=== PATIENT | female | born 1980 | race Caucasian/White ===

== ENCOUNTER 2023-02-17 06:18 | Emergency (ER) | payer BC, SELFPAY ==
--- NOTE | ~2023-02-17 | CT_ITS ---
CT head/brain wo IV con CLINICAL INFORMATION: Reason for Exam seizure like activity, no history of sz COMPARISON: No prior CT scan available for comparison. TECHNIQUE: Department standard protocol. This CT examination was performed using dose optimization techniques as appropriate, variously including the following: *Automated exposure control *Adjustment of mA and/or kV according to patient size (this includes techniques or standardized protocols for targeted exams where dose is matched to indication/reason for exam; i.e. extremities or head) *Use of iterative reconstruction technique DLP: 606 mGy-cm FINDINGS: CEREBRAL HEMISPHERES: There is no evidence of intra-axial or extra-axial mass, hemorrhage or acute infarct. BRAIN PARENCHYMA: Normal [place]-white matter differentiation. SUBDURAL SPACE: No bleed. BASAL GANGLIA AND PINEAL GLAND: Unremarkable VENTRICLES: Symmetric and normal in size. CEREBELLUM AND BRAINSTEM: No space-occupying mass, hemorrhage or acute infarct. CEREBELLOPONTINE ANGLES: No lesion found. ORBITS: No intraorbital mass. VESSELS: Unremarkable SKULL BASE: Unremarkable INCLUDED SINUSES AT SKULL BASE: Clear SKULL AND SKIN: No fracture or bone lesion found. CT/CT head/brain wo IV con IMPRESSION: No CT evidence of intracranial space-occupying mass, bleed or infarct.
[2023-02-17 06:23] VITALS: BP 145/78; BP 146/96; PULSE 108; PULSE 110; RESP 21; TEMP 37.1; O2SAT 97; BMI 24.9
--- NOTE | 2023-02-17 06:23 | ECG_ITS ---
Test Reason : SEIZURES Blood Pressure : / mmHG Vent. Rate : 112 BPM Atrial Rate : 112 BPM P-R Int : 128 ms QRS Dur : 104 ms QT Int : 346 ms P-R-T Axes : 051 041 031 degrees QTc Int : 472 ms Sinus tachycardia Incomplete right bundle branch block Nonspecific ST abnormality Abnormal ECG No previous ECGs available Referred By: Generic ED Physician Electronically Signed By:RADU GRIGGS
--- NOTE | 2023-02-17 06:31 | ED_ITS ---
HPI - General Adult General Chief complaint: Seizure Stated complaint: SZ, POST ICTAL, NO SZ HX PER EMS Time Seen by Provider: 02/17/23 06:31 Source: patient and family () Mode of arrival: EMS Limitations: no limitations History of Present Illness HPI narrative: Patient is a 42-year-old female with history of dystonia presenting to the emergency department with report of seizure-like activity by . Has been reports that he was woken by patient making all out gasping noises around 5:00 a.m., then she appeared to be having tonic clonic movements and some foaming at the mouth. He feels the episode lasted approximately 1 minute, followed by heavy breathing for several minutes. States he rolled her onto her side and observed her eyes rolling back into her head, then called 911. Patient reports that she remembers waking several times throughout the night with sensation of nausea. She denies any vomiting. States that she felt fine yesterday, denies any recent headaches, cough, abdominal pain, chest pain, shortness of breath. Reports that she has been having episodes of palpitations every several weeks since October or November. Saw her PCP regarding the palpitations and wore a Holter monitor for 2 weeks. She is scheduled to see [facility] next month for further evaluation. She denies any current chest pain, shortness of breath, palpitations. Patient and deny any history of seizures. Patient denies bowel or bladder incontinence. She denies any recent falls or other trauma. MD complaint: Seizure-like activity Onset (ago): hour(s) Associated symptoms: denies other symptoms Treatments prior to arrival: none Related Data Previous Rx's Medication Instructions Recorded nitrofurantoin 100 mg PO Q12H 5 days #10 caps 02/17/23 monohydrate/macrocrystals 100 mg capsule (Macrobid) Allergies Allergy/AdvReac Type Severity Reaction Status Date / Time cefazolin Allergy Rash Verified 02/17/23 07:49 tomato [TOMATO] AdvReac Intermediate ABD PAIN, Verified 02/17/23 07:50 BLOATING Review of Systems 2 Review of Systems: As per HPI. Yes all other systems are reviewed and are negative Constitutional: Constitutional: Reports as per HPI [facility] Social History Social History Smoked in Last 30 Days: No Use of substances other than those prescribed or required for medical reasons: No Advance Directives: No Advance Directives Information Provided: No Patient : No Physical Exam ED Vital Signs: Vital Signs - 24 hr 02/17/23 06:23 02/17/23 07:08 Temperature 98.7 F Pulse Rate 108 H 92 Respiratory Rate 21 H 18 Blood Pressure 146/96 H 125/75 Pulse Oximetry 99 Oxygen Delivery Method Room Air Room Air BMI result Body Mass Index 24.9 Vital signs have been reviewed and appear to be correct. Blood pressure elevated. Heart rate tachycardic. Respiratory rate normal. Temperature normal. Oxygen saturation normal. Const General: cooperative, healthy appearing and no acute distress Orientation/consciousness: oriented to person, oriented to place, oriented to time and patient oriented x3 Limitations: no limitations HENMT Head: Yes normocephalic and Yes atraumatic Ears: external ears normal General nose exam: Normal external nose present Face and sinus: Yes face symmetric Mouth: oropharynx normal and moist mucous membranes Throat: Yes uvula midline Eyes Pupils: Equal, round and reactive pupils present Neck Neck: Yes normal visual inspection and Yes supple Resp Effort & Inspection: normal respiratory effort and able to speak in complete sentences Auscultation: clear to auscultation bilaterally Cardio Rate: regular rate Rhythm: regular rhythm Heart sounds: S1 normal heart sound present and S2 normal heart sound present GI Palpation (GI): Soft to palpation and nontender Auscultation: normoactive bowel sounds General: Yes no CVA tenderness Back/Spine/Pelvis Back: no CVA tenderness Skin General skin exam: elasticity normal and turgor normal Neuro General: oriented to person, oriented to place, oriented to time, patient oriented x3, moves all extremities, no focal motor deficits and CN's II-XI intact bilaterally Cranial nerves: Yes Equal, round and reactive pupils present Cognition (Neuro): normal cognition Extrem General: Yes full ROM, Yes no pedal edema and Yes no calf tenderness Psych Mental Status: mental status grossly normal Affect: normal affect Thought process: Normal thought process present Medications Administered Discontinued Medications Generic Name Dose Route Start Last Admin Trade Name Freq PRN Reason Stop Dose Admin Sodium Chloride 1,000 mls @ 999 mls/hr 02/17/23 07:15 02/17/23 08:17 Ns IV 02/17/23 08:15 Infused .Q1H1M SAMY Infusion Medical Decision Making Medical Decision Making [facility] Narrative: 07:05 Patient is a 42-year-old female with history of dystonia presenting to the emergency department with report of seizure-like activity by . On exam patient is awake, A+Ox3, mildly tachycardic, BP slightly elevated, VS otherwise WNL, afebrile, normal neurological exam without focal deficits, physical exam findings as above. Given reported symptoms and physical exam findings, initial differential includes CVA/ICH, tumor/mass, infection, electolyte abnormality, ETOH withdrawl, infection. Do not suspect sepsis at this time. 07:15 Lactic elevated to 5.5 likely secondary to seizure, will order IV fluids. Although patient meets sepsis criteria, based on reported history and physical exam findings, elevated lactic and tachycardia likely related to seizure. Patient does not show evidence of leukocytosis, is afebrile. Do not suspect sepsis. Labs notable for no leukocytosis, no anemia, negative troponin. CO2 17 likely related to hyperventilation during seizure. UA with 2+ leukocytes, 3+ blood, 21-50 WBCs, trace bacteria, will treat for UTI. CT notable for no acute abnormality. My interpretation is in agreement with the radiologist's interpretation. All results discussed with patient and all questions answered. Patient states that she already has a neurologist that she sees every 6 months for her dystonia. Instructed patient to contact her neurologist's office 1st thing tomorrow morning to schedule an appointment regarding the seizure. Discussed with patient has been that patient should not drive until cleared by Neurology. Instructed patient and has been to return for any additional episodes of seizures or seizure-like activity. Will treat for UTI with Macrobid based on UA results. All other return precautions discussed at bedside. Patient has been verbalized understanding of and agreement with plan. Discussed case with Dr. Tsang who agrees patient is stable for discharge home with outpatient neurology follow up. Differential Diagnosis Differential Diagnoses: The differential diagnosis associated with the presentation includes As per [facility]. Admission/Observation Consideration of admission/observation: Escalation of care including admission/observation considered Lab Data [facility] Lab Attestation statement: I reviewed the patient's lab results. As per [facility]. 02/17/23 06:39 02/17/23 06:39 Labs: Lab Results 02/17/23 02/17/23 Range/Units 06:39 07:25 WBC 6.1 (4.8-10.8) X10*3/uL RBC 4.81 (4.20-5.50) X10*6/uL Hgb 13.7 (12.0-16.0) g/dl Hct 39.3 (37.0-47.0) % MCV 81.7 (80.0-98.0) fL MCH 28.5 (27.0-33.0) pg MCHC 34.9 (31.0-35.0) g/dl RDW 12.4 (11.0-16.0) % Plt Count 229 (160-400) X10*3/uL MPV 10.5 (9.4-12.3) fL Immature Gran % (Auto) 0.3 (0.0-0.4) % Neut % (Auto) 80.9 H (45-73) % Lymph % (Auto) 14.4 L (20-40) % Geary % (Auto) 3.1 (2-11) % Eos % (Auto) 0.8 (0-4) % Baso % (Auto) 0.5 (0-2) % Lymph # (Auto) 0.9 L (1.2-4.9) X10*3/uL Geary # (Auto) 0.2 (0.1-1.2) X10*3/uL Eos # (Auto) 0.1 (0.0-0.4) X10*3/uL Baso # (Auto) 0.0 (0.0-0.2) X10*3/uL Abs Immat Gran (auto) 0.02 (0.00-0.03) X10*3/uL Absolute Neuts (auto) 4.9 (2.0-8.3) x10*3/uL Absolute Nucleated RBC 0.000 (0.0-0.012) X10*3/uL Nucleated RBC % (auto) 0.0 (0.0-0.2) /100WBC Sodium 139 (135-145) mmol/L Potassium 4.1 (3.3-5.1) mmol/L Chloride 109 H (96-108) mmol/L Carbon Dioxide 17 L (22-29) mmol/L Anion Gap 17 (12-20) BUN 12 (9-16) mg/dL Creatinine 0.88 (0.5-1.4) mg/dL Estim Creat Clear Calc 82.6 Estimated GFR > 60 Random Glucose 98 (60-115) mg/dL Lactic Acid 5.5 H* (0.5-2.0) mmol/L Calcium 9.2 (8.4-10.2) mg/dL Total Bilirubin 0.2 (0.0-1.0) mg/dL AST 13 (5-31) U/L ALT 11 (0-31) U/L Alkaline Phosphatase 42 (39-117) U/L Troponin I High Sens < 2.7 (<3.5-17.0) ng/L Total Protein 7.0 (6.5-8.0) g/dL Albumin 4.4 (3.5-5.0) g/dL Beta HCG, Quant < 2 mIU/mL Urine Color Red A Urine Appearance Turbid Urine pH 5.0 (5.0-9.0) Ur Specific [place] 1.020 (1.005-1.025) Urine Protein 100 (2+) H (Neg-Trace) mg/dL Urine Glucose (UA) Negative (Negative) mg/dL Urine Ketones Trace (Negative) mg/dL Urine Blood Large (3+) H (Negative) Urine Nitrite Negative (Negative) Ur Leukocyte Esterase Moderate (2+) H (Negative) Urine RBC >20 H (0-2) /HPF Urine WBC 21-50 H (0-5) /HPF Ur Squamous Epith Cells 3-5 (0-2) /HPF Urine Bacteria Trace (None Seen) Hyaline Casts 0-2 (0-2) /LPF Urine Opiates Screen Not Detected (Not Detect) Urine Fentanyl Screen Not Detected (Not Detect) Ur Barbiturates Screen Not Detected (Not Detect) Ur Phencyclidine Scrn Not Detected (Not Detect) Ur Amphetamines Screen Not Detected (Not Detect) U Benzodiazepines Scrn Not Detected (Not Detect) Urine Cocaine Screen Not Detected (Not Detect) U Marijuana (THC) Screen Not Detected (Not Detect) Ethyl Alcohol < 10 mg/dL Independent Interpretation I performed an independent interpretation of an: EKG and CT Scan Interpretation: Sinus tachycardia, rate 112 beats per minute, normal AR and QT intervals, no evidence of STEMI No acute abnormality on CT head Radiology Impression Discussion of test interpretation with radiology: I have reviewed the radiologist's reading. Radiologist Impression: CT/CT head/brain wo IV con IMPRESSION: No CT evidence of intracranial space-occupying mass, bleed or infarct. Independent Historian Clinical information obtained from an independent historian. History obtained from or confirmed by: Spouse () External Record Review External record reviewed: Inpatient record, Office record and Outpatient record Prescription Management I considered prescription management with: Antibiotic Discharge Plan Discharge Clinical Impression: New onset seizure Patient Disposition: Home, Self-Care Instructions: New-Onset Seizure in Adults (ED) Additional Instructions: You were evaluated in the emergency department today for seizure-like activity. Your evaluation including blood work, and CT scan of your brain did not show any conditions requiring emergent treatment at this time. Please call your neurologist thing Saturday morning to schedule a follow-up appointment. YOU SHOULD NOT DRIVE OR OPERATE HEAVY MACHINERY UNTIL CLEARED BY YOUR NEUROLOGIST. Return to the emergency department if you develop a severe headache, fever 100.4? F or greater, vision changes, persistent vomiting, severe muscle pain, dark tea-colored urine, recurrent seizures, or any new or concerning symptoms. Your urine did show evidence of a urinary tract infection. Please complete the full course of antibiotics as prescribed. You should schedule a follow-up appointment with your primary care provider as well. Prescriptions: New nitrofurantoin monohyd/m-cryst [Macrobid] 100 mg capsule 100 mg PO Q12H 5 Days Qty: 10 0RF Rx Instructions: must administer with a meal/food
[2023-02-17 06:45] LABS: Basophils Percent Auto 0.5 % (0-2); Eosinophils Absolute Auto 0.1 X10*3/uL (0.0-0.4); Eosinophils Percent Auto 0.8 % (0-4); Hematocrit 39.3 % (37.0-47.0); Hemoglobin 13.7 g/dl (12.0-16.0); Imm Gran Abs Auto 0.02 X10*3/uL (0.00-0.03); Imm Gran Pct Auto 0.3 % (0.0-0.4); Lymphocytes Absolute Auto 0.9 X10*3/uL (1.2-4.9); Lymphocytes Percent Auto 14.4 % (20-40); MANUAL DIFF FLAG NO; Mean Corpuscular HGB Conc 34.9 g/dl (31.0-35.0); Mean Corpuscular Hemoglobin 28.5 pg (27.0-33.0); Mean Corpuscular Volume 81.7 fL (80.0-98.0); Mean Platelet Volume 10.5 fL (9.4-12.3); Monocytes Absolute Auto 0.2 X10*3/uL (0.1-1.2); Monocytes Percent Auto 3.1 % (2-11); Neutrophils Absolute Auto 4.9 x10*3/uL (2.0-8.3); Neutrophils Percent Auto 80.9 % (45-73); Platelet Count 229 X10*3/uL (160-400); Red Blood Count 4.81 X10*6/uL (4.20-5.50); Red Cell Distribution Width 12.4 % (11.0-16.0); White Blood Count 6.1 X10*3/uL (4.8-10.8)
[2023-02-17 07:01] LABS: Lactic Acid 5.5 mmol/L (0.5-2.0)
[2023-02-17 07:06] LABS: Anion Gap 17 (12-20); Troponin-I High Sensitivity < 2.7 ng/L (<3.5-17.0)
[2023-02-17 07:08] VITALS: BP 125/75; PULSE 92; RESP 18; O2SAT 99
[2023-02-17 07:08] LABS: Alanine Aminotransferase 11 U/L (0-31); Albumin Level 4.4 g/dL (3.5-5.0); Alkaline Phosphatase 42 U/L (39-117); Aspartate Amino Transferase 13 U/L (5-31); Bilirubin Total 0.2 mg/dL (0.0-1.0); Blood Urea Nitrogen 12 mg/dL (9-16); Calcium 9.2 mg/dL (8.4-10.2); Carbon Dioxide 17 mmol/L (22-29); Chloride 109 mmol/L (96-108); Creatinine Clr Calc Pharmacy 82.6; Estimated Glomerular Filt Rate > 60; Ethanol < 10 mg/dL; Glucose Random 98 mg/dL (60-115); Potassium 4.1 mmol/L (3.3-5.1); Sodium 139 mmol/L (135-145)
--- NOTE | 2023-02-17 07:09 | PC.NURSE ---
pt a&ox3. respirations even and unlabored. pt lung sounds clear bilaterally. abdomen soft non tender to touch. pt neuro assessment positive. this RN helped pt to bathroom, pt ambulated with steady gait, denies dizziness. pt denies nausea, vomiting and chest pain. normal sinus on tele. provider at bedside discussing pt care.
[2023-02-17] MEDS: 0.9 % Sodium Chloride 1,000 ML 999 ML IV (07:22)
[2023-02-17 07:35] LABS: Appearance Urine Turbid; Color Urine Red; Glucose Urine UA Negative (Negative); Leukocyte Esterase Urine Moderate (2+) (Negative); Nitrite Urine Negative (Negative); UMIC TRIGGER UACC YES; Urine Blood Large (3+) (Negative); Urine Ketones Trace mg/dL (Negative); Urine Protein 100 (2+) mg/dL (Neg-Trace)
[2023-02-17 07:36] LABS: Bacteria Urine Trace (None Seen); Hyaline Casts Urine 0-2 /LPF (0-2); RBC Urine >20 /HPF (0-2); UACC Culture Trigger YES; WBC Urine 21-50 /HPF (0-5)
[2023-02-17 07:49] LABS: Amphetamine Screen Urine Not Detected (Not Detect); Barbiturates, Urine Not Detected (Not Detect); Benzodiazepines Screen Urine Not Detected (Not Detect); Cannabinoid Screen Urine Not Detected (Not Detect); Cocaine Screen Urine Not Detected (Not Detect); Fentanyl, urine Not Detected (Not Detect); Opiate Screen Urine Not Detected (Not Detect); Phencyclidine Screen Urine Not Detected (Not Detect)
[2023-02-17 08:02] LABS: HCG Quantitative < 2 mIU/mL
[2023-02-17 08:43] LABS: Reflex Lactate? Lactic Acid Added
--- NOTE | 2023-02-17 09:16 | PC.NURSE ---
pt states they have home medications available to take. charles HALL aware and verbally states pt can take home medications.
[2023-02-17 09:18] LABS: ~Lactic Acid-LAB USE ONLY 1.2 mmol/L (0.5-2.0)
== END 2023-02-17 09:42 | disposition home or self-care (01) ==
PROVIDERS: Registered Nurse Emergency; Emergency Provider Emergency Medicine; PCP Nurse Practitioner Family
DX: R56.9 Unspecified convulsions (principal); R00.0 Tachycardia, unspecified; Z79.899 Other long term (current) drug therapy
CPT/HCPCS: 36415; 70450; 80053; 80307; 81001; 83605; 84484; 84702; 85025; 87086; 87088; 87186; 93005; 99285